=== PATIENT | male | born 1970 | race Caucasian/White ===

== ENCOUNTER 2017-05-27 17:47 | Emergency (ER) | payer OTHER ==
[~2017-05-27] VITALS: Ht 190.5 cm; Wt 119.1 kg
[~2017-05-27 17:47] MED LIST: ASPI325T PO; CALC500T7 PO; LORA2TAB2 PO; OLAN10TA3 PO; QUET400T3 PO; ZOLP10TA2 PO; [UNRECOGNIZED DRUG - CODE]; [UNRECOGNIZED DRUG - CODE]
[2017-05-27 18:18] VITALS: BP 120/90
[2017-05-27] MEDS ORDERED: PERMETHRIN 5% 60 GM CREAM TP ONE (20:00)
== END 2017-05-27 20:52 | disposition home or self-care (01) ==
LOC: EMS 17:55
DX: S80.862A Insect bite (nonvenomous), left lower leg, initial encounter (principal); S80.861A Insect bite (nonvenomous), right lower leg, initial encounter; F17.210 Nicotine dependence, cigarettes, uncomplicated; W57.XXXA Bitten or stung by nonvenomous insect and other nonvenomous arthropods, initial encounter; Y93.89 Activity, other specified; Y92.89 Other specified places as the place of occurrence of the external cause; Y99.8 Other external cause status
CPT/HCPCS: 99282

== ENCOUNTER 2019-12-31 21:21 | Emergency (ER) | payer OTHER ==
[~2019-12-31] VITALS: Ht 188 cm; Wt 77.3 kg
[~2019-12-31 21:21] MED LIST changes: +ASPI-1484 PO; -ASPI325T PO; +LORA-1001 PO; -LORA2TAB2 PO; -QUET400T3 PO; +QUET400T5 PO
[2019-12-31] MEDS ORDERED: AMLO5TAB9 PO (22:32)
[2019-12-31] MEDS ORDERED: QUEtiapine FUMARATE 100 MG TABLET PO ONE (23:15)
[2019-12-31] MEDS ORDERED: OLANZapine 5 MG TABLET PO ONE (23:15)
[2020-01-01 00:08] VITALS: BP 105/62
== END 2020-01-01 00:10 | disposition home or self-care (01) ==
LOC: EMS 21:22
DX: F20.9 Schizophrenia, unspecified (principal); F12.10 Cannabis abuse, uncomplicated; I10 Essential (primary) hypertension; F17.210 Nicotine dependence, cigarettes, uncomplicated